=== PATIENT | female | born 1955 | race Caucasian/White ===

== ENCOUNTER → 2021-12-18 10:13 | Outpatient (CLI) | payer BC, SELFPAY ==
--- NOTE | ~2021-12-18 | MM_ITS ---
EXAMINATION: MM screening [facility] BI w ja HISTORY: Screening mammogram TECHNIQUE: Craniocaudal and mediolateral oblique 3-D tomosynthesis images were obtained and synthetic 2-D images were generated. CAD analysis was submitted and interpreted. COMPARISON: 03/02/2011, 11/03/2007 BREAST PARENCHYMAL COMPOSITION: The breasts are heterogeneously dense, which may obscure small masses . FINDINGS: There is no suspicious mass, calcification, or architectural distortion to suggest malignan cy in either breast. There has been no suspicious interval change. IMPRESSION: 1. No mammographic evidence of malignancy. 2. Recommend routine screening mammography in one year. BI-RADS Category 1: Negative Reviewed, dictated and finalized at location A.
== END ==
PROVIDERS: PCP Family Medicine; Visit Provider Nurse Practitioner
DX: Z12.31 Encounter for screening mammogram for malignant neoplasm of breast (principal)
CPT/HCPCS: 77063; 77067

== ENCOUNTER → 2022-07-17 14:43 | Outpatient (CLI) | payer BC, SELFPAY ==
--- NOTE | ~2022-07-17 | DEXA_ITS ---
Bone Density Report Name: MAXIM ALSTON Age: 66 Sex: Female Ethnicity: White Date of : 1955 Indication: postmenopausal; screening for osteoporosis; asthma or emphysema; Referring Provider: REJI, CHA Study: Bone densitometry was performed. Exam Date: July 17, 2022 Accession number: [id number] Bone Density: Region BMD T-score Z-score Classification AP Spine (L1-L4) 1.267 2.0 3.8 Normal Femoral Neck (Left) 0.693 -1.4 0.1 Osteopenia Total Hip (Left) 0.799 -1.2 0.0 Osteopenia Femoral Neck (Right) 0.692 -1.4 0.1 Osteopenia Total Hip (Right) 0.799 -1.2 0.0 Osteopenia Total Hip Mean 0.799 -1.2 0.0 Osteopenia World Health Organization criteria for BMD impression classify patients as: Normal (T-score at or above -1.0), Osteopenia (T-score between -1.0 and -2.5), or Osteoporosis (T-score at or below -2.5). 10-year Fracture Risk(1): Major Osteoporotic Fracture 8.2% Hip Fracture 0.8% Reported Risk Factors: [place] (), Neck BMD=0.692, BMI=31.7 (1) FRAX(R) Version 3.08. Fracture probability calculated for an untreated patient. Fracture probability may be lower if the patient has received treatment. Previous Exams: Region Exam Age BMD T-score BMD Change BMD Change Date g/cm2 vs Baseline vs Previous AP Spine(L1-L4) 07/17/2022 66 1.267 2.0 0.078* 0.071* 03/02/2011 55 1.196 1.4 0.007 0.007 11/03/2007 52 1.189 1.3 Total Hip(Left) 07/17/2022 66 0.799 -1.2 -0.071* -0.054* 03/02/2011 55 0.853 -0.7 -0.017 -0.017 11/03/2007 52 0.870 -0.6 Total Hip(Right) 07/17/2022 66 0.799 -1.2 -0.061* -0.056* 03/02/2011 55 0.855 -0.7 -0.004 -0.004 11/03/2007 52 0.860 -0.7 *Denotes significance at 95% confidence level, LSC for AP Spine = 0.022 g/cm2, LSC for Total Hip = 0.027 g/cm2 Clinical Information Provided by Patient: Has used the following medications: Vitamin D, Calcium Has the following medical conditions: Asthma or Emphysema Patient maximum height was 61.5 Menopause Age: 53 No regular weight bearing exercise Drinks caffeinated beverages Onset of menses at age 13 Number of children 2 Impression: The patient has low bone mass, based on the Left Femoral Neck T-score. The patient has an estimated ten-year risk of hip fracture of 0.8% and an estimated ten-year risk of major fracture
== END ==
PROVIDERS: PCP Family Medicine; Visit Provider Nurse Practitioner
DX: Z78.0 Asymptomatic menopausal state (principal); M85.852 Other specified disorders of bone density and structure, left thigh; M85.851 Other specified disorders of bone density and structure, right thigh
CPT/HCPCS: 77080

== ENCOUNTER → 2022-12-18 09:12 | Outpatient (CLI) | payer MEDICARE, OTHER, SELFPAY ==
--- NOTE | ~2022-12-18 | MMUS_ITS ---
EXAMINATION: MM diagnostic [facility] BI w ja, US breast BI complete HISTORY: Medial left breast pain TECHNIQUE: Additional 3-D tomosynthesis images of the breasts were performed and synthetic 2-D images were generated. CAD analysis was submitted and interpreted. High resolution bilateral complete breas t ultrasound was performed. COMPARISON: Comparison to multiple prior studies sequentially, with oldest reviewed study dated 11/03. BREAST PARENCHYMAL COMPOSITION: The breasts are heterogeneously dense, which may obscure small masses FINDINGS: MAMMOGRAPHIC FINDINGS: The right breast is stable without evidence for malignancy. There is a focal asymmetry laterally in t he left breast which is not significantly changed from 12/18/2021. No corresponding abnormality is see n on medial lateral or MLO views. ULTRASOUND: Complete bilateral US of all 4 quadrants of the breasts and retroareolar region was reviewed. Right breast: Normal heterogeneous echotexture without focal solid or cystic mass. Left breast: At 2:00, 4 cm from the nipple, there is a benign-appearing oval hyperechoic 3 mm mass wi th parallel orientation, consistent with benign lipoma. No suspicious masses in the left breast to cruz ggest malignancy. IMPRESSION: 1. Probable benign focal asymmetry laterally in the left breast seen on CC view only. No sonographic correlate. 2. Recommend 6 month follow-up diagnostic left mammogram with possible additional ultrasound. BI-RADS category 3, probably benign findings. Reviewed, dictated and finalized at location A. IMPRESSION: 1. Probable benign focal asymmetry laterally in the left breast seen on CC view only. No sonographic correlate. 2. Recommend 6 month follow-up diagnostic left mammogram with possible addition al ultrasound. BI-RADS category 3, probably benign findings.
== END ==
PROVIDERS: PCP Family Medicine; Visit Provider Obstetrics & Gynecology Gynecology
DX: N64.4 Mastodynia (principal); R92.8 Other abnormal and inconclusive findings on diagnostic imaging of breast
CPT/HCPCS: 76641; 77062; 77066; G0279

== ENCOUNTER → 2023-10-08 08:13 | Outpatient (CLI) | payer MEDICARE, OTHER, SELFPAY ==
--- NOTE | ~2023-10-08 | MMUS_ITS ---
EXAMINATION: MM diagnostic nun[facility] LT w ja, US breast LT limited HISTORY: Follow-up left breast asymmetry TECHNIQUE: Additional 3-D tomosynthesis images of the left breast were performed and synthetic 2-D im ages were generated. CAD analysis was submitted and interpreted. High resolution Limited left breast ultrasound was performed. COMPARISON: Comparison to multiple prior studies sequentially, with oldest reviewed study dated 12/18. BREAST PARENCHYMAL COMPOSITION: The breasts are heterogeneously dense, which may obscure small masses FINDINGS: MAMMOGRAPHIC FINDINGS: The left breast is stable. Asymmetries of the left breast are unchanged from prior study. No new mass es, calcifications or architectural distortion to suggest malignancy. ULTRASOUND: Limited left breast ultrasound: There is a small 4 mm lipoma at 3:00, 5 cm from the nipple. No suspic ious masses to suggest malignancy. IMPRESSION: 1. No evidence for malignancy in the left breast. 2. Routine yearly screening mammogram and regular clinical breast examination are recommended. BI-RADS Category 2: Benign finding(s). Reviewed, dictated and finalized at location A. [employer] IMPRESSION: 1. No evidence for malignancy in the left breast. 2. Routine yearly screening mammogram and regular clinical breast examination a re recommended. BI-RADS Category 2: Benign finding(s).
== END ==
PROVIDERS: PCP Family Medicine; Visit Provider Obstetrics & Gynecology Gynecology
DX: R92.8 Other abnormal and inconclusive findings on diagnostic imaging of breast (principal)
CPT/HCPCS: 76642; 77061; 77065; G0279